=== PATIENT | female | born 1975 | race Caucasian/White ===

== ENCOUNTER 2025-05-11 10:32 | Outpatient (CLI) | payer BC | END 2025-05-11 10:33 | disposition home or self-care (01) | LOC: CSHMRI 10:32 | PROVIDERS: ATTEND Specialist | DX: D05.10 Intraductal carcinoma in situ of unspecified breast (principal) | CPT/HCPCS: C8908 ==

== ENCOUNTER 2025-06-07 11:17 | Outpatient (CLI) | payer BC | END 2025-06-07 11:18 | disposition home or self-care (01) | LOC: CSHMAMMO 11:17 | PROVIDERS: ATTEND Specialist | DX: D05.11 Intraductal carcinoma in situ of right breast (principal); Z98.890 Other specified postprocedural states | CPT/HCPCS: 19281 ==